=== PATIENT | male | born 2005 | race Two or more races ===

== ENCOUNTER 2024-11-01 21:27 | Emergency (ER) | payer MEDICAID, SELFPAY ==
[2024-11-01 22:19] VITALS: BP 144/89; PULSE 100; RESP 18; TEMP 37.3; O2SAT 98
[2024-11-01] MEDS: AMOXICILLIN/POT CLAV 875 TABLET 1 TAB PO (23:14)
[2024-11-01] MEDS: NAPROXEN 250 MG TABLET 500 MG PO (23:14)
--- NOTE | 2024-11-02 04:49 | EDNOTE_ITS ---
ED Dental RME/HPI General Chief complaint: Dental/Oral/Throat Stated complaint: RIGHT CHEEK SWELLING,TOOTHACHE Time Seen by Provider: 11/01/24 22:41 Arrival date/time: 11/01/24 21:27 19M with no significant PMH presents to ED with several days of R cheek swelling and dental pain. Patient does not see dentist regularly but will. Limitations: no limitations Related Data Previous Rx's ?Medication ?Instructions ?Recorded ibuprofen 600 mg tablet 600 mg PO Q8HR #30 tabs 06/16 11/28 amoxicillin 875 mg-potassium 1 tab PO BID 7 days #14 t abs 11/01/24 clavulanate 125 mg tablet Allergies Allergy/AdvReac Type Severity Reaction Status Date / Time NKA* Allergy Uncoded 07/02/15 15:34 Review of Systems Review of Systems Systems Reviewed: All systems reviewed, normal except as documented Constitutional Constitutional: Reports system reviewed and no additional complaints, except as documented, Denies fever(s) and Denies headache(s) ENT Ears, Nose, Mouth, and Throat: Reports as per HPI, Reports dental pain, Denies disequilibrium and Denies headache(s) Cardiovascular Cardiovascular: Reports system reviewed and no additional complaints, except as documented, Denies chest pain and Denies dyspnea Respiratory Respiratory: Reports system reviewed and no additional complaints, except as documented, Denies cough and Denies dyspnea Gastrointestinal Gastrointestinal: Reports system reviewed and no additional complaints, except as documented, Denies abdominal pain, Denies nausea and Denies vomiting Neurologic Neurologic: Reports system reviewed and no additional complaints, except as documented, Denies confusion, Denies disequilibrium and Denies headache(s) Psychiatric Psychiatric: Denies confusion Past Medical History Social History SMOKING STATUS: Never smoker ED Exam General Limitations: Present no limitations General appearance: Present alert and in no apparent distress Head Head exam: Present atraumatic Eye Eye exam: Present normal appearance, PERRL and EOMI ENT ENT exam: Present mucous membranes moist Expanded ENT Exam Teeth exam: Present dental caries and other (R cheek/jaw swelling) Neck Neck exam: Present normal inspection, full ROM and trachea midline Chest Chest inspection: Present normal inspection and symmetric chest wall rise Respiratory Respiratory exam: Present normal lung sounds bilaterally Cardiovascular Cardiovascular exam: Present regular rate, normal rhythm and normal heart sounds Abdominal Exam Abdominal exam: Present soft and normal bowel sounds Extremities Exam Extremities exam: Present normal inspection and full ROM Back Exam Back exam: Present normal inspection and full ROM Neurological Exam Neurological exam: Present alert, oriented X3 and CN II-XII intact Psychiatric Psychiatric exam: Present normal affect and normal mood Skin Skin exam: Present warm, dry, intact and normal color Course Quality Measures none Orders Category Date Time Status Amoxicillin/Pot Clav 875 [Augmentin 875] Med 11/01/24 22:46 Discontinued 1 tab PO X1 ONE Naproxen [Naprosyn] Med 11/01/24 22:46 Discontinued 500 mg PO X1 ONE Vital Signs Vital signs: Vital Signs Temperature 99.2 F 11/01/24 22:19 Pulse Rate 100 11/01/24 22:19 Respiratory Rate 18 11/01/24 22:19 Blood Pressure 144/89 H 11/01/24 22:19 Pulse Oximetry (%) 98 11/01/24 22:19 Oxygen Delivery Method Room Air 11/01/24 22:19 O2 at 98% on RA and WNLs Dental / Oral MDM Narrative MDM Narrative:: 19M with no significant PMH presents to ED with several days of R cheek swelling and dental pain. Patient does not see dentist regularly but will. Physical exam reveals dental caries and R jaw/cheek swelling. Patient is afebrile, calm, and alert. Meds and auto travel counselor given. Patient data External records reviewed:: None Clinical information provided by:: patient Social determinants that could affect healthcare access:: none Patient has the following chronic illnesses:: none How is presenting disease/condition affected by chronic disease/condition?: no chronic disease Evaluation data The following diagnostics were reviewed and interpreted by me:: other (specify) (none) Lab and/or radiology exams considered but not ordered:: not ordered Interpretation Summary: n/a Medications / Prescriptions Medications or Prescriptions considered but not ordered:: ordered Medication administrations:: Medication Administration History Discontinued Medications Amoxicillin/Clavulanate Potassium (Amoxicillin/Pot Clav 875 Tablet) 1 tab PO X1 ONE Stop: 11/01/24 22:47 Last Admin: 11/01/24 23:14 Dose: 1 tab Documented By: Naproxen (Naproxen 250 Mg Tablet) 500 mg PO X1 ONE Stop: 11/01/24 22:47 Last Admin: 11/01/24 23:14 Dose: 500 mg Documented By: above Consultations Consultation(s) initiated? (list below): No Diagnosis Dental Differential Diagnosis: gingival abscess, dental caries, toothache, dental abscess, fracture of tooth and aphthous ulcer Most likely diagnosis given after review of the tests above:: dental abscess Admission Indicated Admission indicated?: not indicated Admission Request Was there a request for admission?: No Disposition Plan Disposition Plan: Discharge Discharge Attestation Discharge Attestation: The patient and all family members were given an opportunity to ask questions and understood the discharge instructions. Discharge instructions specifically effects, indications for sooner follow up or return to the emergency department, and the expected course of current diagnosis. Patient condition: Stable Discharge Plan Plan Patient Disposition: HOME (Self Care) Discharge Disposition comment: Stable Prescriptions/Referrals Prescriptions/Med Rec: New amoxicillin-pot clavulanate 875-125 mg tablet 1 tab PO BID 7 Days Qty: 14 0RF No Action ibuprofen 600 MG tablet 600 mg PO Q8HR Qty: 30 0RF Referrals: Tony Saenz MD [Primary Care Provider] - In 1 week Problem List Clinical Impression: Dental abscess Patient/Caregiver Discharge Instructions Education Materials: ED Dental Abscess Additional Instructions: Please follow-up with PCP within 24-48 hours and return immediately if symptoms worsen. See dentist soon. Print Language: Tristanian Stand Alone Forms: Patient Portal Info Letter VERONICA/KAILEY Supervising Physician VERONICA/KAILEY Supervising Physician: Dr. Lantigua
== END 2024-11-01 23:48 | disposition home or self-care (01) ==
PROVIDERS: Emergency Provider Emergency Medicine; PCP Family Medicine
DX: K04.7 Periapical abscess without sinus (principal)
CPT/HCPCS: 99282; A9270